=== PATIENT | female | born 1960 | race Caucasian/White ===

== ENCOUNTER 2019-12-14 12:14 | Outpatient (CLI) | payer MEDICARE, SELFPAY ==
[2019-12-14 12:20] VITALS: BMI 24.1
--- NOTE | 2019-12-14 13:09 | PC.NURSE ---
The patient was unable to complete the treadmill stress test using a modified Ancelmo protocol for 6 minutes due to back/hip/leg pain. Dr. Askew was notified and orders were received to schedule the patient for a Lexiscan sestamibi stress test (LMM). This nurse explained the changes to the patient in detail and she wishes to continue with the ordered test. Lillie from [facility] scheduling was notified of the change and voiced to this nurse that we did not need further insurance approval for the change. Scheduling was notified and the patient is now scheduled for a LMM on Thursday December 26, 2019 with a check in time of 0700 and stress time of 0915. Full verbal and typed instructions were given to the patient. She verbalized her understanding. She was then sent to US for her scheduled ECHO.
[2019-12-14 13:16] VITALS: BP 168/91; PULSE 74
--- NOTE | 2019-12-14 14:15 | USCV_ITS ---
Nadja Barbosa Age: 59 Gender: F : 1960 Exam Date: 12/14/2019 13:05 Ordering Phys: Yamel Askew MD ([email or web address]) Technologist: Becca Langley [place] [facility] [place]: Chest pain, palpitations BP: 110 / 72 HR: 59 Rhythm: Sinus Technical Quality: Adequate MEASUREMENTS (Male / Female) Normal Values 2D ECHO LV Diastolic Diameter PLAX 3.8 cm 4.2 - 5.9 / 3.9 - 5.3 cm LV Systolic Diameter PLAX 2.2 cm LV Chamber Size 2.6 cm IVS Diastolic Thickness 0.9 cm 0.6 - 1.0 / 0.6 - 0.9 cm IVS Systolic Thickness 1.5 cm LVPW Diastolic Thickness 1.2 cm 0.6 - 1.0 / 0.6 - 0.9 cm LVPW Systolic Thickness 1.6 cm RV Chamber Size 2.1 cm LVOT Diameter 2.0 cm LV Ejection Fraction 2D Teich 75.0 % LV Ejection Fraction MOD 2C 79.0 % LV Ejection Fraction 2C AL 80.7 % LA Diameter 2.9 cm LA Width 2.2 cm LA Height 4.3 cm RA Width 3.0 cm RA Height 3.9 cm Aorta at Sinotubular Diameter 2.6 cm M-MODE LV Diastolic Diameter MM 3.9 cm 4.2 - 5.9 / 3.9 - 5.3 cm LV Systolic Diameter MM 2.5 cm LV Ejection Fraction MM Teich 68.6 % IVS Diastolic Thickness MM 1.0 cm 0.6 - 1.0 / 0.6 - 0.9 cm IVS Systolic Thickness MM 1.1 cm LVPW Diastolic Thickness MM 1.1 cm 0.6 - 1.0 / 0.6 - 0.9 cm LVPW Systolic Thickness MM 1.4 cm RV Diastolic Diameter MM 2.1 cm Aortic Annulus Diameter 2.9 cm LA Ao Ratio MM 1.0 MV E Point Septal Separation 0.2 cm DOPPLER AV Peak Velocity 114.0 cm/s LVOT Peak Velocity 106.0 cm/s AV Area Cont Eq vti 3.0 cm squared AV Area Cont Eq pk 2.8 cm squared MV Area PHT 3.4 cm squared Mitral E to A Ratio 0.8 MV E' Velocity 9.0 cm/s Mitral E to MV E' Ratio 7.5 Mitral E to LV E' Lateral Ratio 8.1 Mitral E to LV E' Septal Ratio 7.0 TR Peak Velocity 195.0 cm/s TR Peak Gradient 15.2 mmHg TV Peak E Velocity 53.0 cm/s Right Atrial Pressure 3.0 mmHg Pulmonary Artery Systolic Pressu 18.2 mmHg PV Peak Velocity 71.0 cm/s RV Acceleration Time 0.1 s RV Ejection Time 0.3 s RV AcT/ET 0.3 FINDINGS Left Ventricle Normal left ventricular size and systolic function, EF 78 %. No regional wall motion abnormalities. Right Ventricle The right ventricle is normal in size and function. Right Atrium The right atrium is normal in size. Left Atrium The left atrium is normal in size. Mitral Valve Mild mitral valve regurgitation. Aortic Valve No gross abnormalities noted Tricuspid Valve Trace tricuspid valve regurgitation. Pulmonic Valve No gross abnormalities noted Pericardium Normal pericardium without effusion. Aorta Normal ascending aorta dimension. CONCLUSIONS Normal left ventricular size and systolic function, EF 78 %. No regional wall motion abnormalities. Trace tricuspid valve regurgitation. Normal cardiac chamber sizes. There is no pericardial effusion. There are no intracardiac masses. Normal pulmonary artery peak systolic pressure of 18 mmHg. No previous study is available for comparison. Dr Yamel Askew MD [facility] (Electronically Signed) Final Date: 14 December 2019 23:42 S
== END 2019-12-14 12:15 | disposition home or self-care (01) ==
LOC: CDL 12:15
PROVIDERS: PCP Nurse Practitioner; Visit Provider Internal Medicine Cardiovascular Disease
DX: R07.9 Chest pain, unspecified (principal); R00.2 Palpitations; I07.1 Rheumatic tricuspid insufficiency
CPT/HCPCS: 93306

== ENCOUNTER 2019-12-26 06:48 | Outpatient (CLI) | payer MEDICARE, SELFPAY ==
[2019-12-26 07:14] VITALS: BMI 24.1
--- NOTE | 2019-12-26 07:30 | ECG_ITS ---
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 Interpretive Statements NAME OF STUDY: LEXISCAN SESTAMIBI STRESS TEST INDICATION: Chest Pain; Palpitations PROCEDURE: At the baseline, the EKG revealed sinus bradycardia with incomplete right bundle branch block pattern. The baseline blood pressure was 132/83 mm Hg with a heart rate of 56 beats/min. Lexiscan was infused over a period of 20 seconds. A total of 0.4 milligrams of Lexiscan was infused. The stress phase was continued for a total of 5 minutes. Heart rate at the end of the stress phase was 80 with a blood pressure 165/81. The EKG at the peak infusion revealed no significant changes. Sestamibi was injected 20 seconds after the Lexiscan infusion. Blood pressure at the end of the recovery phase was 139/84 with a heart rate of 75 per minute. CONCLUSION: 1. No significant EKG changes with the LexiScan infusion 2. No LexiScan induced chest pain or cardiac arrhythmia 3. Normal blood pressure and heart rate response 4. Sestamibi/sestamibi perfusion scan pending; see separate report. Electronically Signed On 12-28-2019 0:42:20 CDT by Yamel Askew M.D. [email or web address]
--- NOTE | 2019-12-26 07:31 | NMCV_ITS ---
NM karly perf SPECT r/s* [id number] Nadja Barbosa Age: 59 Gender: F : 1960 Exam Date: 12/26/2019 08:00 Ordering Phys: Yamel Askew MD ([email or web address]) Technologist: REBECCA Lugo Exam Location: [facility] Indications: PALPITATIONS, CHEST PAIN STRESS TEST Please see separate stress test report in [facility] for full findings IMAGE PROTOCOL Rest/Stress 1 Lexiscan Day Radiopharmaceutical Dose (mCi) Administration Site Administered by Rest: Tc-99m 10.9 IV REBECCA Lugo Sestamibi Stress:Tc-99m 32.4 IV REBECCA Cary Sestamibi Rest: 26-Dec-2019 60 Discovery 630 Stress: 26-Dec-2019 30 Discovery 630 0.4mg Lexiscan. Images obtained in supine and prone position. SPECT RESULTS Technical Quality: Excellent Raw Data Analysis: Normal Image Corrections: No attenuation or motion correction applied Summed Stress Score: 0 Summed Rest Score: 0 Summed Difference Score: 0 PERFUSION FINDINGS Fairly uniform myocardial tracer uptake with no significant perfusion abnormalities. Some attenuation artifacts are noted in the inferior wall region FUNCTIONAL RESULTS (calculated via Gated SPECT) Stress Image LV EF (%): 77 Stress EDV (mL):66 TID: 0.97 Stress ESV (mL):15 FUNCTIONAL FINDINGS: Segmental wall motion analysis revealing no gross wall motion normalities. IMPRESSIONS 1. Unremarkable myocardial perfusion imaging. 2. Normal LV ejection fraction 77%. 3. LV wall motion analysis revealing no gross wall motion normalities. 4. Normal LV volume. No significant coronary ischemia, based on the above findings. No similar previous studies are available for comparison Dr Yamel Askew MD [facility] (Electronically Signed) Final Date: 27 December 2019 00:20 S
[2019-12-26] MEDS: regadenoson 0.4 Mg/5 ml Syringe IVP (09:29)
--- NOTE | 2019-12-26 09:29 | SUR.PREOP ---
Patient reports no pain or discomfort prior to the start of the procedure.
[2019-12-26 09:35] VITALS: BP 146/85; PULSE 78
== END 2019-12-26 06:49 | disposition home or self-care (01) ==
LOC: CDL 06:48
PROVIDERS: PCP Nurse Practitioner; Visit Provider Internal Medicine Cardiovascular Disease
DX: R07.9 Chest pain, unspecified (principal); R00.2 Palpitations
CPT/HCPCS: 78452; 93017; A9500; J2785

== ENCOUNTER → 2021-01-28 10:13 | Outpatient (BNVA) | payer MEDICARE, SELFPAY | PROVIDERS: PCP Nurse Practitioner; Referring Provider Nurse Practitioner; Visit Provider Orthopaedic Surgery | DX: M25.562 Pain in left knee (principal) | CPT/HCPCS: 73560; 73565 ==